=== PATIENT | female | born 1930 | race Caucasian/White ===

== ENCOUNTER → 2018-06-18 | Outpatient (CLI) | payer OTHER ==
[~2018-06-18] MED LIST: ADVAIR 500-501 EACH; CYMBALTA60 MG; LISINOPRIL10 MG; MOBIC7.5 M1 PO; NORCO 5-325 TA1 EACH PO; PROAIR HFA8.5 GM; RANITIDINE 150150 M1; ROBAXIN500 MG PO; SIMVASTATIN20 MG; SINGULAIR 10 MG10 MG; SYNTHROID75 MCG
== END ==
LOC: M.RAD 10:54
DX: Z12.31 Encounter for screening mammogram for malignant neoplasm of breast (principal)